=== PATIENT | female | born 1955 | race Caucasian/White ===

== ENCOUNTER 2016-09-18 19:27 | Emergency (ER) | payer BC ==
[~2016-09-18] VITALS: Ht 170.2 cm; Wt 90.0 kg
[~2016-09-18 19:27] MED LIST: PERC7.5T13 PO
[2016-09-18 19:28] VITALS: BP 179/105; PULSE 94; RESP 18; TEMP 100; O2SAT 97
--- NOTE | 2016-09-18 19:30 | PD ---
Physical Exam Date Seen by Provider: Sep 18, 2016 Time Seen by Provider: 19:30 Narrative 61 YOWM 3 DAYS OF COLD SYMPTOMS. F/C/COUGH /CONGESTION/BODY ACHES VITALS REVIEWED. AWAITING BED PLACEMENT Data Data Last Documented VS Vital Signs Date Time Temp Pulse Resp B/P Pulse Ox O2 Delivery O2 Flow Rate FiO2 09/18/16 19:28 100.0 94 18 179/105 97 Room Air [facility] Medical Record Reviewed: Yes Supervised Visit with GUCCI: Yes Gary Doe Sep 18, 2016 19:30
[2016-09-18 20:20] VITALS: BP 137/82; PULSE 89; RESP 18; O2SAT 96
[2016-09-18] MEDS ORDERED: TRIA37.53 PO (20:20)
[2016-09-18] MEDS ORDERED: BENZ1CAP34 PO (20:25)
--- NOTE | 2016-09-18 20:25 | PD ---
HPI Chief Complaint: Cold / Flu Symptoms Time Seen by Provider: 20:06 Travel History International Travel<30 days: No Contact w/Intl Traveler<30days: No Traveled to known affect area: No History of Present Illness HPI The patient is a 61 year old female who presents to the [facility] emergency department with a history of congestion, body aches, cough that began 2 days ago. The patient reports that her nasal discharge is clear in color. She reports that she has a postnasal drip, sinus pressure over her forehead, and a dry cough. The patient denies having any chest pain, chest pressure, or shortness of breath. She was not aware that she had a fever until she is checked on arrival. The patient was noted to have a fever of 100. The patient denies having any known sick contacts. She reports that she did not get her flu vaccination this season. She denies having any worsening lower extremities edema, calf pain, or erythema. She denies having any nausea or vomiting. She reports that she has had a diminished appetite for solids, however she has been drinking fluids well. She denies having any diarrhea. The patient on review of systems reports that she does have urinary frequency, however she has been drinking extra fluids. The patient denies any neck pain, abdominal pain, dysuria, urinary urgency, joint pain or swelling, or neurologic symptoms. FOR[facility]LY [facility] Past Medical History Narrative Medical The patient's past medical history is significant for peripheral edema treated with triamterene. Medical History: Denies Significant Hx Cardiovascular Problems: Yes Tetanus Vaccination: > 5 Years Influenza Vaccination: No Menopausal: Yes Past Surgical History Narrative Surgical The patient's past surgical history is significant for a cholecystectomy. Cholecystectomy: Yes Social History Alcohol Use: No Tobacco Use: No Substance Use: No Allergies-Medications (Allergen,Severity, Reaction): Coded Allergies: Augmentin (Verified Adverse Reaction, Unknown, RASH, 09/18/16) Penicillin (Verified Adverse Reaction, Unknown, 09/18/16) Reported Meds & Prescriptions Reported Meds & Active Scripts Active Tamiflu (Oseltamivir Phosphate) 75 Mg Cap 75 Mg PO BID Benzonatate 200 Mg Cap 200 Mg PO TID PRN Reported Triamterene-Hydrochlorothiazide 37.5-25 Mg Cap 1 Cap PO DAILY Review of Systems Except as stated in HPI: all other systems reviewed are Neg General / Constitutional: No: Fever Eyes: No: Visual changes HENT: Positive: Sore Throat, Rhinorrhea, Congestion, No: Headaches Cardiovascular: No: Chest Pain or Discomfort, Dyspnea on exertion Respiratory: Positive: Cough, No: Shortness of Breath Gastrointestinal: Positive: Loss of Appetite, No: Nausea, Vomiting, Diarrhea, Abdominal Pain, Changes in Bowel Habits, Indigestion Genitourinary: Positive: Frequency, No: Urgency, Dysuria, Flank Pain Musculoskeletal: Positive: Myalgias, No: Pain Skin: No Rash Neurologic: Positive: Weakness (generalized fatigue), No: Focal Abnormalities , Change in Mentation, Slurred Speech, Sensory Disturbance Psychiatric: No: Depression Endocrine: No: Polydipsia Hematologic/Lymphatic: No: Easy Bruising Physical Exam Narrative General: The patient is a well-developed well-nourished female in no acute distress. Head and Neck exam: Head is normocephalic atraumatic. Eyes: EOMI, pupils are equal round and reactive to light. Nose: Midline septum with erythematous edematous nasal mucosa and a clear nasal discharge. The patient has sinus pressure, tenderness on palpation of bilateral frontal sinuses. Mouth: Dentition unremarkable. Moist mucus membranes. Posterior oropharynx is not erythematous. No tonsillar hypertrophy. Uvula midline. Airway patent. Neck: No palpable lymphadenopathy. No nuchal rigidity. No thyromegaly. Cardiovascular: Regular rate and rhythm without murmurs, gallops, or rubs. Lungs: Clear to auscultation bilaterally. No wheezes, rhonchi, or rales. Abdomen: Soft, without tenderness to palpation in all 4 quadrants of the abdomen. No guarding, rebound, or rigidity. Normal bowel sounds are audible. No tenderness on palpation of McBurney's point. Extremities: No clubbing or cyanosis. The patient has trace pedal edema. Back: No costovertebral angle tenderness to palpation. Neurologic Exam: Grossly nonfocal. Skin Exam: No rash noted. Intact skin that is warm and dry. Data Data Last Documented VS Vital Signs Date Time Temp Pulse Resp B/P Pulse Ox O2 Delivery O2 Flow Rate FiO2 09/18/16 20:20 89 18 137/82 96 Room Air 09/18/16 19:28 100.0 Orders Influenzae A/B Antigen (09/18/16 20:06) Chest, Pa & Lat (09/18/16 20:17) Oseltamivir (Tamiflu) (09/18/16 21:15) MDM Medical Decision Making Medical Screen Exam Complete: Yes Emergency Medical Condition: Yes Medical Record Reviewed: Yes Interpretation(s) Last Impressions Chest X-Ray 09/18/162016 Signed Impressions: Service Date/Time: Sunday, September 18, 2016 20:30 - CONCLUSION: The lungs are clear. Geovanny Mtz MD Differential Diagnosis Influenza, versus upper respiratory infection that is likely viral, versus viral versus bacterial sinusitis, versus bronchitis, versus pneumonia Narrative Course During the course of the patients emergency department visit, the patients history, examination, and differential diagnosis were reviewed with the patient. The patient had an influenza antigen sent, chest x-ray was sent. The patients laboratory studies were reviewed and remarkable for influenza antigen was positive for influenza type B. Patient was given her first dose of Tamiflu. Radiology studies were reviewed and remarkable for a chest x-ray was unremarkable. No acute infiltrate. The patient will be discharged home with a prescription for Tamiflu to be completed over the next 5 days, and benzonatate capsules to take as needed for cough. The patient is resting comfortably and feels better, is alert and in no distress. The patients results and examination findings were discussed with the patient. The repeat examination is unremarkable and benign. The history, exam, diagnostic testing, and current condition do not suggest any significant pathology to warrant further testing, continued ED treatment, admission, or surgical evaluation at this point. The vital signs have been stable. The patient does not have uncontrollable pain, intractable vomiting, or other significant symptoms. The patient's condition is stable and appropriate for discharge. The patient will pursue further outpatient evaluation with a primary care physician or other designated or consulting physician as indicated in the discharge instructions. The patient expressed understanding and was agreeable with this plan. Diagnosis Primary Impression: Influenza B Referrals: Primary Care Physician 1 week Patient Instructions: General Instructions, Influenza (ED) Departure Forms: Tests/Procedures, Work Release Enter return to work date: Sep 20, 2016 Med/Other Pt SpecificInfo: Prescription(s) given Scripts Oseltamivir (Tamiflu)75 Mg Cap75 Mg PO BID #9 CAP Ref 0 Prov:Lashae Patterosn MD 09/18/16 Benzonatate 200 Mg [id number] Mg PO TID PRN (COUGH) #15 CAP Ref 0 Prov:Lashae Patterson MD 09/18/16 Disposition: 01 DISCHARGE HOME Condition: Stable Lashae Patterson MD Sep 18, 2016 20:25
[2016-09-18] MEDS ORDERED: OSEL75 PO (21:10)
[2016-09-18] MEDS ORDERED: OSELTAMIVIR PHOSPHATE 75 MG CAP PO ONE (21:15)
--- NOTE | 2016-09-18 21:24 | RADRPT ---
EXAM DATE/TIME: 09/18/2016 20:30 [place] COMPARISON: No previous studies available for comparison. INDICATIONS : Cough and chest pain MEDICAL HISTORY : None. SURGICAL HISTORY : None. ENCOUNTER: Initial ACUITY: 3 days PAIN SCORE: 5/10 LOCATION: Bilateral chest FINDINGS: PA and lateral views of the chest demonstrate the lungs to be symmetrically aerated without evidence of mass, infiltrate or effusion. The cardiomediastinal contours are unremarkable. Mild degenerative changes in the thoracic spine with mild bridging anterior paravertebral ossification.. CONCLUSION: The lungs are clear. Geovanny Mtz MD on September 18, 2016 at 21:22 Board Certified Radiologist. This report was verified electronically.
== END 2016-09-18 22:02 | disposition home or self-care (01) ==
LOC: NEPE 19:27
DX: J10.1 Influenza due to other identified influenza virus with other respiratory manifestations (principal)
CPT/HCPCS: 71020; 87804; 99283